=== PATIENT | female | born 1975 | race Caucasian/White ===

== ENCOUNTER 2020-03-05 13:55 | Outpatient (RCR) | payer BC, SELFPAY | END 2020-03-05 23:59 | LOC: IMMUN 13:55 | PROVIDERS: Visit Provider Family Medicine | DX: Z23 Encounter for immunization (principal) | CPT/HCPCS: 0011A; 0012A; 91301 ==

== ENCOUNTER 2020-06-15 06:02 | Day surgery (SDC) | payer BC, SELFPAY ==
--- NOTE | 2020-06-08 09:48 | NURSING ---
pt states she had second Moderna Vaccine 04/03/20
[2020-06-15] VITALS (9 sets, daily range): BP systolic 107–144; BP diastolic 58–90; PULSE 55–70; RESP 16; TEMP 36.2–37.1; O2SAT 98–100; BMI 39.4
[2020-06-15 06:32] LABS: Internal QC Validated? YES +Cl - CLEAR BKGD; Pregnancy, Urine Negative Negative
[2020-06-15 06:43] LABS: Hematocrit 41.1 % (37-47); Hemoglobin 13.1 g/dL (12.0-15.0); Mean Corp Hgb Conc 31.9 g/dL (32-36); Mean Corpuscular Hgb 26.8 pg (27.0-32.0); Mean Corpuscular Volume 84.2 fL (81-99); Mean Platelet Vol. 9.4 fl (6.2-12.0); Platelet Count 328 K/mm3 (150-450); RBC Distribution Width CV 13.2 % (11.6-14.6); RBC Distribution Width SD 40.3 fl (35.1-43.9); Red Blood Count 4.88 M/mm3 (4.2-5.4); White Blood Count 6.6 K/mm3 (4.4-11.0)
[2020-06-15] MEDS: Lactated Ringers 1,000 ML 100 ML IV ×2 (06:43→07:52)
[2020-06-15] MEDS: Lubricating Jelly 60 GM Tube 30 GM TOPICAL (07:04)
--- NOTE | 2020-06-15 07:05 | HP.PCM_ITS ---
History and Physical Date of Admission: 06/15/20 Blanche Chaney, a 45 year old female 5 0 1 0 5, presents for Hy steroscopy, D, ablation on June 15, 2020 at 7:30. Heavy periods which began 3 years ago. Blanche claims it started during normal activity and has been present 3 years. It occurs with menses. It is located in the uterus. Blanche characterizes the quality bleeding, painful. Severity is moderate. Has tried OCPs in past which did not improve menorrhagia, could not tolerate. MEDICAL HISTORY: 1. Hypertension MEDICATIONS HISTORY: 1. hydrochlorothiazide 25 mg tablet, One pill by mouth once a day 2. lisinopril 10 mg tablet, One pill by mouth once a day 3. metoprolol tartrate 100 mg tablet, One pill by mouth once a day 4. Otezla 30 mg tablet, One pill by mouth twice a day 5. spironolactone 100 mg tablet, One pill by mouth once a day ALLERGIES: NKDA SOCIAL HISTORY: Alcohol Use - socially Smoking - denies smoking Drugs - Deniest FAMILY HISTORY: Denies history of anesthesia issues. No VTE. MENSTRUAL HISTORY: LMP Known?- Approximate-Month KnownAmount/Duration - 7-9 days, LMP - 05/11/20 PAST PREGNANCIES: Total Pregnancies - 6; Full Term Pregnancies - 5; Premature - 0; Abortions, Induced - 0; Abortions, Spontaneous - 1; Ectopics - 0; Multiple Births - 0; Living Children - 5 SURGICAL HISTORY: 1. kidney stone removal ; - Review of Systems: GENERAL - Denies fever, or chills SKIN - Denies skin changes EYES - Denies visual changes EARS - Denies difficulty hearing NOSE - Denies nasal congestion or bleeding MOUTH - Denies sore throat or difficulty swallowing NECK - Denies pain or swelling RESPIRATORY - Denies shortness of breath or wheezing CARDIOVASCULAR - Denies palpitations or chest pain GASTROINTESTINAL - Denies nausea, vomiting, diarrhea, constipation GENITOURINARY - Denies dysuria, frequency of urination, incontinence of urine MUSCULOSKELETAL - Denies joint or muscle pain NEUROLOGICAL - Denies localized numbness or weakness PSYCHIATRIC - Denies depression or anxiety ENDOCRINE - Denies heat or cold intolerance, weight loss or gain HEMATO-IMMUNOLOGIC - heavy and painful menses PHYSICAL EXAM BP- 128/84 Sitting, Right arm, regular cuff Weight- 210.70840 lbs Height- 61.00 inch BMI:39.76 CONSTITUTIONAL - NAD, well nourished, and well developed SKIN - No rash, lesions, or ulcers HEENT - Normocephalic, PERRLA, EOMI NECK - No nodes, no nuchal rigidity and thyroid normal size and texture LUNGS - normal respiratory rate and rhythm EXTREMITIES - No edema or calf tenderness NEUROLOGICAL - Cranial nerves II-XII grossly intact PSYCHIATRIC - A and O to time, place, person, mood and affect ASSESSMENT/PLAN: 1. Menorrhagia Heavy menses for the past 3 years. Changing tampon hourly. Large clots. Has tried OCP in past, did not help bleeding. Pt had allergic rash as well. Discussed options of OCP, DEPO, progesterone IUD, ablation. Pt elects for ablation. R/B/A discussed. Risks include, but are not limited to: risk of bleeding to the point of transfusion, infection, injurty to surrounding tissue (bowel/bladder), uterine perforation, ICU admission, VTE. Pt aware and consents signed. has had vasectomy
--- NOTE | 2020-06-15 07:39 | PCM.OPRPT ---
Report of Operation Date of Procedure: 06/15/20 Pre-Operative Diagnosis: Menorrhagia Post-Operative Diagnosis: Menorrhagia Surgery/Procedure Performed:: Dilation, hysteroscopy, Idalmis ablation Description of Surgical Findings:: Normal-appearing external genitalia. Minimal uterine descensus. Thin endometrial lining no polyps or fibroids. Bilateral tubal ostia noted. Type of Anesthesia:: MAC Estimated Blood Loss (mL): 2cc Fluids Replaced: 800cc Description of Procedure: Indications: 45-year-old female with history of menorrhagia. Risks, benefits, alternatives were discussed with patient. Risks include but are not limited to: Risk of bleeding to the point of transfusion, infection, injury to surrounding tissue including bowel or bladder, uterine perforation, VTE, ICU admission. Procedure: Patient taken to the operating room placed under MAC anesthesia. Patient placed in the dorsal lithotomy position and prepped and draped in the usual sterile fashion. Bladder drained 50 cc clear urine. Weighted speculum placed in the posterior vagina and Galan retractor used to visualize the cervix. Anterior lip of the cervix grasped with single-tooth tenaculum. Cervix sequentially dilated. Hysteroscope placed through cervical canal and inspection of the endometrial cavity completed, findings as above. Idalmis device opened, passed cavity assessments. Device deployed and ablation completed. Hysteroscope replaced to inspect cavity, ablation completed. Hysteroscope removed. Single-tooth tenaculum removed, sites hemostatic. Weighted speculum removed. At the end of the procedure all needle, lap, sponge counts were correct. UOP: 50cc - Complications None - Admit VTE Documentation VTE Mechan Device Prophylaxis: SCD's
--- NOTE | 2020-06-15 07:45 | DCINST_ITS ---
Discharge Diet: No Restrictions Discharge Activity: Return to Normal Activity, May Drive, May not drive while taking narcotic pain medications., May Shower May resume sexual activity in: 3 weeks Weight Bearing Status: Weight bearing as tolerated Call your doctor if your incision/area has: Continuous Slow Oozing Call your doctor if you observe: Fever of 101 or Higher, Inability to urinate, Inability to have a bowel movement, Using more than one pad per hour, Increased palpitations (irregular heartbeat), Calf discomfort, Uncontrolled pain Cleanse incision/area with: Soap & Water Allergies/Adverse Reactions: Allergies No Known Allergies Allergy (Verified 06/08/20 09:15) Medications to take at Discharge Apremilast [Otezla] 30 mg PO BID 06/08/20 Hydrochlorothiazide [Hctz] 25 mg PO DAILY 06/08/20 Lisinopril 10 mg PO DAILY 06/08/20 Metoprolol Tartrate 50 mg PO BID 06/08/20 Multivit-Minerals/Folic Acid [Multivitamin Gummies] 200 mcg PO DAILY 06/08/20 Sertraline HCl 100 mg PO DAILY 06/08/20 Spironolactone 100 mg PO DAILY 06/08/20 Oxycodone [Oxyir] 5 mg PO Q6H PRN PRN 2 Days #5 tab 06/15/20 The following prescriptions were given: Oxycodone [Oxyir] 5 mg PO Q6H PRN PRN 2 Days #5 tab PRN Reason: Pain Score 6-10 Transmission Status: Received by [facility] Orders to be completed after discharge: Type & Screen - PAT ONLY Time Frame: 06/15/20, Facility: [facility], Location: Laboratory Primary Care Physician: FRANTZ SUAREZ [Other] Test Results: Test results from this visit will be discussed in further detail at your follow- up appointment, if applicable. Please Follow Up With: Eve Pulido DO When: 2 weeks post operative visit
[2020-06-15] MEDS: HYDROcodone Bitartrate/Apap 5/325 Tablet PO (08:34)
== END 2020-06-15 09:35 | disposition home or self-care (01) ==
LOC: SDC 06:04 → AC 06:05
PROVIDERS: Anesthesiology; Referring Provider Student in an Organized Health Care Education/Training Program; Visit Provider Student in an Organized Health Care Education/Training Program
PROC: 0U5B8ZZ Destruction of Endometrium, Via Natural or Artificial Opening Endoscopic (ICD-10-PCS; CPT 58558; principal; 2020-06-15 07:15)
DX: N92.0 Excessive and frequent menstruation with regular cycle (principal); I10 Essential (primary) hypertension; F41.9 Anxiety disorder, unspecified; Z85.828 Personal history of other malignant neoplasm of skin; Z87.442 Personal history of urinary calculi; Z79.899 Other long term (current) drug therapy
CPT/HCPCS: 00952; 58563; 81025; 85027; 86850; 86900; 86901; J7120